=== PATIENT | male | born 1995 | race Caucasian/White ===

== ENCOUNTER 2017-03-13 16:06 | Emergency (ER) | payer BC ==
[2017-03-13 16:15] VITALS: BP 129/61
--- NOTE | 2017-03-13 16:32 | UC ---
Skin Complaint HPI - HPI Summary HPI Summary: hit in the right eye brow by another players knee while at wrestling practice about 1 hour [employer] [place] - History of Current Complaint Chief Complaint: UCEye Time Seen by Provider: 03/13/17 16:22 Stated Complaint: EYE INJURY Hx Obtained From: Patient Onset/Duration: Sudden Onset Timing: Constant Onset Severity: Mild Current Severity: Mild Pain Intensity: 4 Pain Scale Used: 0-10 Numeric Location: Discrete - lateral right eye brow Aggravating Factor(s): Nothing Alleviating Factor(s): Nothing Associated Signs & Symptoms: Positive: Negative - Allergy/Home Medications Allergies/Adverse Reactions: Allergies Allergy/AdvReac Type Severity Reaction Status Date / Time No Known Allergies Allergy Verified 03/13/17 16:15 Home Medications: Home Medications NK [No Home Medications Reported] 03/13/17 [History Confirmed 03/13/17] Review of Systems Constitutional: Negative Skin: Negative Eyes: Negative ENT: Negative Respiratory: Negative Cardiovascular: Negative Gastrointestinal: Negative Genitourinary: Negative Motor: Negative Neurovascular: Negative Musculoskeletal: Negative Neurological: Negative Psychological: Negative Is Patient Immunocompromised?: No All Other Systems Reviewed And Are Negative: Yes PMH/Surg Hx/FS Hx/Imm Hx Previously Healthy: Yes - Surgical History Surgical History: Yes Surgery Procedure, Year, and Place: right knee arthroscopy - Family History Known Family History: Positive: None - Social History Occupation: Student Lives: With Family Alcohol Use: None Substance Use Type: None Smoking Status (MU): Never Smoked Tobacco - Immunization History Most Recent Tetanus Shot: UTD Physical Exam Triage Information Reviewed: Yes Appearance: Well-Appearing, No Pain Distress, Well-Nourished Vital Signs: Initial Vital Signs Pulse 62 03/13/17 16:10 Resp 18 03/13/17 16:10 BP 129/61 03/13/17 16:10 Pulse Ox 100 03/13/17 16:10 Vital Signs Reviewed: Yes Eye Exam: Normal Eyes: Positive: Conjunctiva Clear, Other: - no visual ENT Exam: Normal ENT: Positive: Normal ENT inspection, Hearing grossly normal, Pharynx normal, TMs normal. Negative: Nasal congestion, Nasal drainage, Trismus, Muffled/ hoarse voice Dental Exam: Normal Neck exam: Normal Neck: Positive: Supple, Nontender Respiratory Exam: Normal Respiratory: Positive: Chest non-tender, No respiratory distress, No accessory muscle use Cardiovascular Exam: Normal Cardiovascular: Positive: RRR, Brisk Capillary Refill Musculoskeletal Exam: Normal Musculoskeletal: Positive: Strength Intact, ROM Intact Neurological Exam: Normal Neurological: Positive: Alert, Muscle Tone Normal Psychological Exam: Normal Skin Exam: Normal Skin: Positive: Other - 2.5 cm laceration lateral right eye brow Laceration Repair - Laceration Repair 1 Description: Linear Laceration Size After Repair: Length (cm) - 2.5, Width (mm) - 1, Depth (mm) - 1 Modified For Repair: No Type Injection: Local Anesthesia Used: 1.0% Lido - 4cc Cleansing Completed Via Routine Prep: Yes Irrigation With Pressure Irrigation Device: Yes Closure Method: Single Layer Suture Of: Skin Suture Type: Prolene - size 6.0 6 sutures Re-Evaluation - Re-Evaluation First Eval Change: Improved - tolerated suture repair well... wound well approximated Course/Dx - Course Course Of Treatment: mild soap and water wash, suture removal in 5 days, follow with lance - Diagnoses Provider Diagnoses: 2.5 cm lateation with suture repair Discharge - Discharge Plan Condition: Stable Disposition: HOME Patient Education Materials: Facial Laceration (ED) Referrals: No Primary Care Phys,NOPCP [Primary Care Provider] - Additional Instructions: Follow with [facility] or return if needed---sutures out in 5 days
[2017-03-13] MEDS ORDERED: Lidocaine 1% MPF* 2 ML VIAL INJ ONE (16:43)
== END 2017-03-13 17:30 | disposition home or self-care (01) ==
LOC: UCEAST 16:06
DX: S01.111A Laceration without foreign body of right eyelid and periocular area, initial encounter (principal); W50.0XXA Accidental hit or strike by another person, initial encounter; Y93.72 Activity, wrestling; Y92.39 Other specified sports and athletic area as the place of occurrence of the external cause
CPT/HCPCS: 12011; 99201; G0463